=== PATIENT | male | born 1930 | race Caucasian/White ===

== ENCOUNTER 2017-06-06 10:38 | Outpatient (CLI) | payer MEDICARE ==
--- NOTE | 2017-06-06 13:17 | RAD ---
LUMBAR SPINE TWO VIEWS WITH FLEXION AND EXTENSION: HISTORY: N34.62 (lumbar radiculopathy). COMPARISON: None. FINDINGS: Multiple areas of degenerative disk space height loss at the lumbar spine, worse at L3-L4 and L4-L5. There is low grade retrolisthesis of L1 over L2, L2 over L3, and L3 over L4. Degenerative disk spac e disease. There is 9 mm of anterolisthesis of L4 over L5. These findings are all in the neutral po sition. With flexion, there is a slight interval decrease of retrolisthesis of L1 over L2, approxima tely 3 mm. Anterolisthesis of L4 over L5 has not significantly changed. L2-L3 and L3-L4 retrolisthe sis is unchanged. With extension, the L1-L2 retrolisthesis increases to 6 mm, and the anterolisthesi s of L4-L5 decreases 7 mm. IMPRESSION: 1. Multiple foci of retrolisthesis, worst at L1-L2, with translation with flexion and extension. 2. Anterolisthesis, grade 1, of L4 over L5, also with translation with flexion and extension. 3. Multiple areas of chronic appearing height loss of the lower thoracic spine. 4. Multiple areas of severe degenerative disk space disease with facet arthrosis of the lower lumbar spine. MRI may be beneficial in this patient. POS: [facility]
== END 2017-06-06 10:39 | disposition home or self-care (01) ==
LOC: TBSIIMAG 10:38
PROVIDERS: ATTEND Neurological Surgery
DX: M47.26 Other spondylosis with radiculopathy, lumbar region (principal); M43.16 Spondylolisthesis, lumbar region
CPT/HCPCS: 72100

== ENCOUNTER 2017-06-10 11:26 | Outpatient (CLI) | payer MEDICARE ==
[2017-06-10] MEDS ORDERED: Gadobenate Dimeglumine 529 MG/1 ML (20ML VIAL) ONE (14:06)
--- NOTE | 2017-06-10 16:59 | MRI ---
MRI CERVICAL SPINE WITHOUT CONTRAST: History: Metastatic disease of unknown primary. Comparison: None. FINDINGS: Bone marrow signal intensity of the cervical spine appears within normal limits. No definite abnormal marrow enhancement is demonstrated. Visualized posterior fossa demonstrates no definite acute abnormality. Motion artifact limits details on the axial images. C2-3: There is no appreciable central canal or neural foraminal narrowing. There is moderate left and mild right facet joint degenerative changes. C3-4: There is a broad based disc osteophyte complex causing mild central canal narrowing and mild ve ntral effacement of the spinal cord. There is uncal vertebral hypertrophy and facet joint degenerativ e change producing severe left neural foraminal narrowing. C4-5: There is a disc osteophyte complex with uncal vertebral hypertrophy and facet joint degenerativ e change producing mild central canal narrowing with mild ventral cord effacement. There is moderate to severe right and moderate left neural foraminal narrowing. C5-6: There is disc osteophyte complex with uncal vertebral hypertrophy and facet joint degenerative change producing severe left and moderate to severe right neural foraminal narrowing. There is modera te central canal narrowing with mild to moderate ventral cord effacement. C6-7: There is uncal vertebral hypertrophy with facet joint degenerative change using moderate bilate ral neural foraminal narrowing. C7-T1: There is no appreciable central canal or neural foraminal narrowing. IMPRESSION: 1. 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 2. No definite marrow signal abnormality or area of enhancement demonstrated to suggest the presence of metastatic disease. POS: [facility]
--- NOTE | 2017-06-10 17:09 | MRI ---
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 Patient complains of headache. COMPARISON: None. TECHNIQUE: Multiple sequences obtained in axial, sagittal, and coronal planes; pre and post IV injection of gado linium-based contrast agent: 17 ml of MultiHance. FINDINGS: There is no abnormal intraaxial enhancement, mass, mass effect, midline shift, or extraaxial fluid co llection. There is diffuse brain parenchymal volume loss, not unusual for age 87-years. There are pre dominately mild chronic ischemic white matter changes in the cerebrum. Tiny dilated Virchow-Piyush per ivascular spaces are noted at the inferior aspect of the left external capsule, posterior limb of lef t internal capsule, and left parietal garcia radiata. These should not be mistaken for old lacunar in farctions. Ventricles are mildly enlarged on the basis of parenchymal volume loss. There is either a fluid level or a moderate sized mucous retention cyst at the posterior, dependent portion of the righ t maxillary sinus. There is partially enhancing material filling much of the left sphenoid air cell, not only the circumferential mucosal thickening, but also a central mass-like structure with intermed iate-low signal on noncontrast T1WI. This requires further evaluation. There is no restricted diffusi on to indicate an acute infarction. No evidence of recent intraaxial hemorrhage. IMPRESSION: 1. Enhancing lesion within the left sphenoid air cell. Recommend further evaluation of the osseous wa lls of the sphenoid sinus with a noncontrast CT of the paranasal sinuses, with attenuation to the sph enoid sinus, to evaluate for possible neoplasm or polyp. 2. No evidence of intracranial metastatic disease involving the brain parenchyma. 3. Involutional changes and moderate chronic ischemic white matter changes of the brain, not unusual for age. Code T RUSSELL Sampson POS: [facility]
--- NOTE | 2017-06-10 17:18 | MRI ---
MR OF THE THORACIC SPINE WITH AND WITHOUT IV CONTRAST: Indication: History of metastatic disease. Technique: Multiplanar, multisequence MR images were obtained of the thoracic spine with and without contrast utilizing 72 cc of Gadolinium. FINDINGS: T1-2: There is prominent facet joint degenerative change inducing mild left neural foraminal narrowin g. T2-3: There is a disc osteophyte complex causing mild central canal narrowing with mild bilateral nena ral foraminal narrowing. T3-4: There is a broad based disc osteophyte complex inducing mild central canal narrowing with mild bilateral neural foraminal narrowing. T4-5: There is disc osteophyte complex inducing mild bilateral neural foraminal narrowing. T5-6: There is no appreciable central canal or neural foraminal narrowing. T6-7: There is no appreciable central canal or neural foraminal narrowing. T7-8: There is a central protrusion and broad based bulge causing mild effacement of the ventral suba rachnoid space. There is also mild right neural foraminal narrowing demonstrated at this level. T8-9: There is a mild broad based bulge. T9-10: There is a mild broad based disc osteophyte complex inducing mild to moderate bilateral neural foraminal narrowing. T10-11: There is a mild broad based bulge without appreciable central canal or neural foraminal narro wing. T11-12: There is a broad based disc osteophyte complex inducing mild central canal narrowing. There i s mild ventral cord effacement. T12-L1: There is no appreciable central canal or neural foraminal narrowing. No definite abnormal region of enhancement is demonstrated. There is some endplate and marrow enhance ment involving multiple thoracic vertebral bodies, likely related to some reactive changes from adjac ent Schmorl's nodes. IMPRESSION: 1. No suspicious findings to suggest metastatic disease through the thoracic spine. 2. Multilevel spondylosis of the thoracic spine with central canal and neural foraminal narrowing as detailed above. POS: [facility]
== END 2017-06-10 11:27 | disposition home or self-care (01) ==
LOC: MRI 11:26
PROVIDERS: ATTEND Neurological Surgery
DX: C80.1 Malignant (primary) neoplasm, unspecified (principal); M47.894 Other spondylosis, thoracic region; M99.82 Other biomechanical lesions of thoracic region; G93.89 Other specified disorders of brain; M47.892 Other spondylosis, cervical region; M99.81 Other biomechanical lesions of cervical region
CPT/HCPCS: 70553; 72156; 72157; A9579

== ENCOUNTER 2017-06-11 10:56 | Outpatient (CLI) | payer MEDICARE ==
[~2017-06-11 10:56] MED LIST: Iopamidol 370 76% 100 ML VIAL ONE
--- NOTE | 2017-06-11 12:32 | CT ---
CT OF CHEST PERFORMED WITH INTRAVENOUS CONTRAST ENHANCEMENT CT OF ABDOMEN AND PELVIS PERFORMED WITH INTRAVENOUS CONTRAST ENHANCEMENT: History: Patient has a history of renal cell carcinoma and history of prostate surgery. Comparison: MRIs of the thoracic and cervical spine performed 06-10-17. FINDINGS: The lungs are clear of any infiltrative process and no pulmonary nodules are identified. No evidence of pleural effusion. There is some elevation of the right hemidiaphragm and some chronic scarring in the right base which is felt to be on the basis of the elevated hemidiaphragm. The visualized liver parenchyma shows no focal abnormalities. The spleen is within normal limits of s ize. The pancreas and gallbladder regions are unremarkable. Right and left adrenal glands and left kidney is normal. Right kidney has been removed. There are no signs of any mass in the region of the renal bed. There is no significant periaortic or mesenteric ad enopathy. CT OF PELVIS PERFORMED WITH CONTRAST ENHANCEMENT: The appendix is unremarkable. There is no evidence of adenopathy, mass, or free fluid. The prostate i s enlarged. There are prostate calcifications seen. Review of osseous structures show arthritic changes of the spine. I do not appreciate any definite ly tic or blastic bony metastatic changes. There are arthritic changes of both hips. IMPRESSION: 1. Post op right nephrectomy change. 2. No evidence of metastatic disease. 3. Enlarged prostate. 4. Arthritic changes of the spine and hips. POS: [facility]
== END 2017-06-11 10:57 | disposition home or self-care (01) ==
LOC: SCSCT 10:56
PROVIDERS: ATTEND Internal Medicine Hematology & Oncology
DX: C80.1 Malignant (primary) neoplasm, unspecified (principal); N40.0 Benign prostatic hyperplasia without lower urinary tract symptoms; M47.9 Spondylosis, unspecified; Z90.5 Acquired absence of kidney
CPT/HCPCS: 71260; 74177; 82565

== ENCOUNTER 2017-09-16 09:50 | Outpatient (CLI) | payer MEDICARE ==
--- NOTE | 2017-09-16 14:09 | MRI ---
MRI LUMBAR SPINE WITH AND WITHOUT CONTRAST: Technique: Multiplanar, multisequential imaging lumbar spine obtained. Post contrast images obtained with administration of 14 cc of MultiHance IV. Indications: Metastases of unknown primary. Low back pain. Right leg pain. Correlation made to plain films of the lumbar spine, 06-06-17. FINDINGS: There appears to be rudimentary ribs in what will be designated of T12. This levels five non-rib bear ing vertebrae which will be numbered L1 through L5. This makes L5 a transitional vertebra. This corre sponds to the number system used on the previous lumbar spine films. The lumbar vertebrae maintain normal height. There are degenerative disc changes at all levels with d isc space narrowing. Degenerative osteophytes from the lumbar vertebrae. Conus terminates at T12. Disc bulge at T10-11 abuts the anterior cord. Mild disc bulge at T11-T12 and at T12-L1 flattens the thecal sac at both of these levels without sign ificant central canal stenosis. L1-2: There is an angular fissure with diffuse bulge flattening the thecal sac. Facet and ligamentous hypertrophy results in mild to moderate central canal stenosis. L2-3: Diffuse disc bulge and posterior degenerative spurring flattens the thecal sac. Facet and ligam entous hypertrophy. Mild to moderate central canal stenosis. L3-4: Slight retrolisthesis. Diffuse disc bulge and hypertrophic spurring flattens the thecal sac. Fa cet hypertrophy is prominent. Moderate central canal stenosis. Bilateral foraminal stenosis. Foramina l stenosis more severe on the left due to disc osteophyte complex. L4-5: There is an anterior listhesis. Mild diffuse disc bulge and hypertrophic change flatten the the melissa sac. Facet hypertrophy is prominent. Moderate to severe central canal stenosis. Bilateral foramin al stenosis. There is a ring enhancing mass within the spinal canal at the L5 level measuring 2.5 cm craniocaudal dimension x 1.8 cm AP dimension in the sagittal plane. Lumbar and sacral vertebrae have a homogeneous signal. NO evidence of bony metastasis identified. IMPRESSION: 1. A ring enhancing mass in the spinal canal at L5. This does not have typical characteristics of me ningioma or epedymoma. Cystic schwannoma and metastatic lesion are considerations. 2. Degenerative disc changes at multiple levels with slight retrolisthesis at L3-4 and anterolisthesi s at L4-5. Central canal stenosis is prominent at L3-4 and L4-5 with foraminal stenosis at these leve ls as described above. POS: [facility]
== END 2017-09-16 09:51 | disposition home or self-care (01) ==
LOC: SCSMRI 09:50
PROVIDERS: ATTEND Neurological Surgery
DX: C80.1 Malignant (primary) neoplasm, unspecified (principal); M48.061 Spinal stenosis, lumbar region without neurogenic claudication; M99.83 Other biomechanical lesions of lumbar region; M43.16 Spondylolisthesis, lumbar region; M51.86 Other intervertebral disc disorders, lumbar region
CPT/HCPCS: 72158; 82565

== ENCOUNTER 2018-03-21 09:46 | Outpatient (CLI) | payer MEDICARE ==
--- NOTE | 2018-03-21 15:32 | MRI ---
MRI LUMBAR SPINE WITH AND WITHOUT CONTRAST: DATE: 03/21/18 HISTORY: 87-year-old male with spinal lesion D48.0. Renal cell carcinoma. COMPARISON: Lumbar spine MRIs of 09/16/17 and 06/03/17. TECHNIQUE: Multiple sequences obtained in axial and sagittal planes, pre and post IV injection of gadolinium-bas ed contrast agent: 17 mL MultiHance. FINDINGS: There is a transitional level at the lumbosacral junction. On the previous lumbar spine MRI reports o f 09/16/17 and 06/03/17, that transitional level was considered a partially sacralized L5. However, when the sagittal [employer] well treatment operator MRI image of the thoracic spine MRI of 06/10/17, which includes the cervical spine, is used for counting purposes, it is demonstrated that what was previously designated as L5 is actually an extra vertebra, which will be designated as L6 for the purposes of the current report. Whereas the level of greatest lordotic angulation was previously designated as L4-5, it will be now designated as L5-6. The level of retrolisthesis will be designated as L4-5 rather than L3-4. T his is the correct labeling, in light of the findings on the thoracic spine MRI. Minimal chronic appearing anterior wedging of T12 vertebral body without marrow signal abnormality. O therwise, the rest of the vertebral body heights are maintained. Moderate disc space narrowing at L2- 3, L3-4, and to a greater degree L4-5. T11-12: Chronic broad based central and bilateral paracentral disc-osteophyte complex indents the ve ntral aspect of the thecal sac, not quite contacting the spinal cord, causing moderate central spinal canal stenosis. No significant interval change. No high grade neural foraminal stenosis. T12-L1: Disc space maintained. Minimal central stenosis. No high grade neural foraminal stenosis. L1-2: No central stenosis. Mild bilateral neural foraminal stenosis. No high grade disc space narrow ing. Schmorl's node at superior end plate of L2. Conus medullaris terminates at mid L2 level. L2-3: There are two tiny enhancing intradural-extramedullary nodules. The more inferior and anterior one located at the lower L2 level, slightly to the left of midline, is approximately 0.2 cm. The oth er one is slightly smaller than that, and is located at midline and slightly posterior and superior t o the other one. These are unchanged compared to 06/04/17 and 09/16/17. Mild degenerative retrolisthe sis of L2 on L3. Schmorl's node superior end plate of L3. Mild central stenosis. Moderate bilateral n eural foraminal stenosis, left greater than right. Diffuse disc bulge. No significant interval change . L3-4: Mild disc bulge. Mild central stenosis. Moderate right neural foraminal stenosis. Mild to mode rate left neural foraminal stenosis. Minimal degenerative retrolisthesis of L3 on L4. No significant interval change. L4-5: Asymmetrically severe left-sided degenerative facet disease with severe left neural foraminal stenosis chronically impinging on the left exiting L4 nerve root. Moderate right neural foraminal latesha nosis. Degenerative retrolisthesis of L4 on L5. Mild central stenosis. Thickening of ligamentum flavu m, left greater than right. No significant interval change. L5-6: Severe bilateral degenerative facet disease results in Grade I anterolisthesis of L5 on L6. Al though the anteroposterior dimensions of the neural foramina are not significantly narrowed, the cran iocaudal dimensions are severely narrowed, chronically deforming the bilateral exiting L5 nerve roots . Moderate central spinal canal stenosis and especially lateral recess stenosis, also chronically imp inging on the bilateral L6 nerve roots. L6: There is an intradural, heterogeneously very T2 hyperintense mass that fills the spinal canal nabila men, with strong, relatively thin, rim enhancement, and a large, nonenhancing central cystic componen t. The measurements on the current study are 2.4 x 1.7 x 2.2 cm. On the 06/04/17 MRI, the measurement s were approximately 2.3 x 1.5 x 2.0 cm. The dimensions on 09/16/17 were approximately 2.4 x 1.6 x 2. 1 cm. L6-S1: Disc space maintained. Hypoplastic bilateral facet joints. No central spinal canal stenosis a nd no neural foraminal stenosis. IMPRESSION: 1. There is a transitional level at the lumbosacral junction. Contrary to the labeling of levels use d on the reports of 09/16/17 and 06/03/17, a review of the thoracic spine MRI of 06/10/17 reveals sheri t the level that was previously labeled as L5, is actually L6. 2. 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 Possibilities incl ude intradural schwannoma versus drop metastasis. 3. Two tiny intradural nodules, on the order of 0.2 cm each, at the lower L2 level, have not signifi cantly changed since 06/04/17. Differential diagnosis of drop metastases versus schwannomas. 4. Severe bilateral facet osteoarthrosis causing Grade I spondylolisthesis at L5-6. 5.. Severe left neural foraminal stenosis at L4-5. 6. High grade bilateral neural foraminal stenosis and lateral recess stenosis, with chronic nerve ro ot impingement, at L5-6. RUSSELL Sampson POS: [facility]
== END 2018-03-21 09:47 | disposition home or self-care (01) ==
LOC: SCSMRI 09:46
PROVIDERS: ATTEND Neurological Surgery
DX: M48.9 Spondylopathy, unspecified (principal); D49.7 Neoplasm of unspecified behavior of endocrine glands and other parts of nervous system; M47.816 Spondylosis without myelopathy or radiculopathy, lumbar region; M43.16 Spondylolisthesis, lumbar region; M48.061 Spinal stenosis, lumbar region without neurogenic claudication; G95.89 Other specified diseases of spinal cord
CPT/HCPCS: 72158; 82565

== ENCOUNTER 2018-11-21 08:15 | Outpatient (CLI) | payer MEDICARE ==
[2018-11-21] MEDS ORDERED: Gadobenate Dimeglumine 529 MG/1 ML (20ML VIAL) ONE (09:00)
--- NOTE | 2018-11-21 12:03 | MRI ---
MRI LUMBAR SPINE WITH CONTRAST: HISTORY: Spinal lesion, follow-up. COMPARISON: 09/16/2017, 03/21/2018. FINDINGS: There is redemonstration of a rim enhancing mass of the inferior vertebral canal, centered at the pre viously described L6 level in keeping with spinal count, 03/21/2018 exam. Mass measures 2.5 cm craniocaudal by 1.6 cm AP by 2.1 cm transverse, which is grossly stable. This do es occupy the near entirety of the vertebral canal at this level. Complex internal enhancement as well as irregular nodular enhancement along the enhancing rim of the lesion is redemonstrated. Small foci of intrathecal enhancement at the L2 level are grossly stable. There are also multiple pun ctate foci of enhancement of the thecal sac of the lower thoracic/upper lumbar spine slightly more conspicuous than on prior exam. Multilevel degenerative changes remain. IMPRESSION: 1. Grossly stable volume of rim-enhancing mass of the vertebral canal, L6 level. 2. Redemonstration of small foci of intrathecal enhancement, L2 level. 3. There are multiple additional punctate enhancing foci of the thecal sac, about the lower thoracic and upper lumbar spine present. Recommend continued imaging follow-up. Transcribed Date/Time: 11/21/2018 12:26 PM
== END 2018-11-21 08:16 | disposition home or self-care (01) ==
LOC: SCSMRI 08:15
PROVIDERS: ATTEND Neurological Surgery
DX: G95.9 Disease of spinal cord, unspecified (principal); M48.9 Spondylopathy, unspecified
CPT/HCPCS: 72149; 82565; A9577

== ENCOUNTER 2021-12-11 14:25 | Outpatient (CLI) | payer MEDICARE | END 2021-12-11 14:26 | disposition home or self-care (01) | LOC: SCSRAD 14:25 | PROVIDERS: ATTEND Internal Medicine | DX: R05.9 Cough, unspecified (principal); J98.11 Atelectasis | CPT/HCPCS: 71046 ==